=== PATIENT | male | born 1960 | race Caucasian/White ===

== ENCOUNTER 2016-11-10 15:36 | Emergency (ER) | payer MEDICARE, OTHER ==
[~2016-11-10] VITALS: Ht 162.6 cm; Wt 140.0 kg
[~2016-11-10 15:36] MED LIST: ASPI325T24 PO; DIAZ5 PO; DRIS8000 PO; FURO1TAB93 PO; GLUCTAB PO; IBUP800 PO; LEVO.15 PO; MECL25CH PO; NITR0.4S SL; NOVO7030P2 SQ; OXYC30TA PO; POTA-243 PO
[2016-11-10 15:45] VITALS: BP 156/91; PULSE 95; RESP 16; TEMP 98.3; O2SAT 96
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
[2016-11-10] MEDS ORDERED: NOVO7030P2 SQ (17:10)
[2016-11-10] MEDS ORDERED: OXYC30TA PO (17:10)
[2016-11-10] MEDS ORDERED: LEVO.15 PO (17:10)
[2016-11-10] MEDS ORDERED: FURO40TA PO (17:10)
[2016-11-10] MEDS ORDERED: IBUP800T23 PO (17:10)
[2016-11-10] MEDS ORDERED: DIAZ10TA PO (17:10)
[2016-11-10] MEDS ORDERED: POTA10CA PO (17:10)
[2016-11-10] MEDS ORDERED: METF500T PO (17:10)
[2016-11-10] MEDS ORDERED: ASPI325T PO (17:10)
[2016-11-10] MEDS ORDERED: KETOROLAC TROMETHAMINE 60 MG/2 ML (IM) VIAL IM ONE (17:30)
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
== END 2016-11-10 18:35 | disposition home or self-care (01) ==
LOC: PHED 15:36 → PHEFT 18:35
DX: M25.511 Pain in right shoulder (principal); S46.001A Unspecified injury of muscle(s) and tendon(s) of the rotator cuff of right shoulder, initial encounter; V29.88XA Motorcycle rider (driver) (passenger) injured in other specified transport accidents, initial encounter; Y93.89 Activity, other specified; Y92.9 Unspecified place or not applicable; E11.9 Type 2 diabetes mellitus without complications; J44.9 Chronic obstructive pulmonary disease, unspecified; Z87.442 Personal history of urinary calculi; Z79.4 Long term (current) use of insulin; Z79.82 Long term (current) use of aspirin
CPT/HCPCS: 73030; 96372; 99283; J1885